=== PATIENT | female | born 1960 | race Caucasian/White ===

== ENCOUNTER 2020-07-02 09:31 | Emergency (ER) | payer OTHER ==
[~2020-07-02 09:31] MED LIST: ALBUTEROL2.5 MG/3 M INH; CATAPRES 0.1MG0.1 MG PO; COZAAR100 MG PO; IMDUR ER TAB 6060 MG PO; INCRUSE ELLI62.5 MCG INH; LOPRESSOR50 MG PO; OMNICEF 300 MG300 MG PO; PREDNISONE20 MG PO; SYMBICORT 16010.2 GM INH; VIBRAMYCIN100 MG PO; ZITHROMAX500 MG PO
== END 2020-07-02 10:41 | disposition home or self-care (01) ==
LOC: ER1 09:31
DX: R11.0 Nausea (principal); I10 Essential (primary) hypertension; J44.9 Chronic obstructive pulmonary disease, unspecified
CPT/HCPCS: 99283

== ENCOUNTER 2020-09-11 03:04 | Inpatient (IN) | payer OTHER ==
[~2020-09-11] VITALS: Ht 157.5 cm; Wt 64.4 kg
[2020-09-11] MEDS ORDERED: PROVENTIL HFA6.7 GM INH (05:02)
[2020-09-11] MEDS ORDERED: ADVAIR 500-501 EACH INH (05:02)
[2020-09-11] MEDS ORDERED: ZESTRIL 40 MG T40 MG PO (05:03)
[2020-09-11] MEDS ORDERED: CLONIDINE HCL0.2 MG PO (05:04)
[2020-09-11] MEDS ORDERED: ASPIRIN 325MG325 MG PO (05:04)
[2020-09-11] MEDS ORDERED: HYDROCHLOROTHIA25 MG PO (05:05)
[2020-09-11] MEDS ORDERED: AMBIEN5 MG PO (05:05)
[2020-09-11 05:31] LABS: RED BLOOD COUNT 3.86 M/UL (4.00-5.10); WHITE BLOOD COUNT 8.8 K/UL (4.5-11.0)
[2020-09-12 07:11] LABS: HIV SCREEN 4TH GENERATION WRFX Non Reactive (Non Reactive)
[2020-09-12 10:16] LABS: HBSAG SCREEN Negative (Negative); HEP A AB, IGM Negative (Negative); HEP B CORE AB, IGM Negative (Negative); HEP C VIRUS AB >11.0 (0.0-0.9)
[2020-09-12 16:31] LABS: BUN/CREATININE RATIO 15 (0-10)
[2020-09-13 03:12] LABS: HEMOGLOBIN 14.6 gm/dl (12.3-15.3)
[2020-09-13 03:17] LABS: RED BLOOD COUNT 4.35 M/UL (4.00-5.10); WHITE BLOOD COUNT 5.9 K/UL (4.5-11.0)
[2020-09-13 03:37] LABS: BUN/CREATININE RATIO 12 (0-10)
--- NOTE | 2020-09-14 02:55 | NUR ---
@0140 PT wishing to leave AMA. PT Alert and Oriented x3. Discussed with PT the risks of leaving, but PT insisted on leaving. PT stated she wasn't that sick and said she was either leaving now or first thing in the morning and that she wasn't waiting on a doctor to leave. called at the request of PT. 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 PT wheeled out to car and advised that if she wished to come back she was always welcome.
== END 2020-09-14 02:50 | disposition left against medical advice (07) | DRG 917 ==
LOC: CCU 03:04 → PROG CARE 09-12 17:37
PROVIDERS: Internal Medicine; ADMIT Internal Medicine
PROC: B24BZZ4 Ultrasonography of Heart with Aorta, Transesophageal (ICD-10-PCS; principal; 2020-09-11)
DX: T40.1X1A Poisoning by heroin, accidental (unintentional), initial encounter (principal); G92 Toxic encephalopathy; E87.2 Acidosis; B19.10 Unspecified viral hepatitis B without hepatic coma; Z20.822 Contact with and (suspected) exposure to COVID-19; N39.0 Urinary tract infection, site not specified; N17.9 Acute kidney failure, unspecified; I13.0 Hypertensive heart and chronic kidney disease with heart failure and stage 1 through stage 4 chronic kidney disease, or unspecified chronic kidney disease; I50.32 Chronic diastolic (congestive) heart failure; T43.621A Poisoning by amphetamines, accidental (unintentional), initial encounter; F17.210 Nicotine dependence, cigarettes, uncomplicated; N18.9 Chronic kidney disease, unspecified; B19.20 Unspecified viral hepatitis C without hepatic coma; J44.9 Chronic obstructive pulmonary disease, unspecified; Z79.82 Long term (current) use of aspirin
CPT/HCPCS: ECHO; 36415; 80048; 80053; 80074; 80307; 82436; 82550; 82553; 82570; 83605; 83735; 84100; 84132; 84133; 84156; 84300; 84439; 84443; 84484; 85027; 86140; 87040; 87086; 87389; 93005; 93306; 94640; 94664; 94760; C9113; J0360; J0696; J1630; J1650; J2060; J2310; J3475